=== PATIENT | male | born 1990 | race Two or more races ===

== ENCOUNTER 2021-07-20 22:29 | Emergency (ER) | payer BC | END 2021-07-20 23:39 | disposition home or self-care (01) | LOC: JD.ED 22:29 | DX: L03.012 Cellulitis of left finger (principal); E66.9 Obesity, unspecified; Z91.018 Allergy to other foods; Z68.41 Body mass index [BMI] 40.0-44.9, adult | CPT/HCPCS: 99283 ==

== ENCOUNTER 2022-07-28 19:41 | Emergency (ER) | payer BC ==
[2022-07-28 21:24] LABS: CORONAVIRUS COVID-19 NAA NEGATIVE (NEGATIVE)
== END 2022-07-28 21:38 | disposition home or self-care (01) ==
LOC: JD.ED 19:41
DX: B34.9 Viral infection, unspecified (principal); J45.909 Unspecified asthma, uncomplicated; E66.9 Obesity, unspecified; Z68.41 Body mass index [BMI] 40.0-44.9, adult; Z86.16 Personal history of COVID-19; Z91.013 Allergy to seafood; Z20.822 Contact with and (suspected) exposure to COVID-19
CPT/HCPCS: 0240U; 71046; 99284

== ENCOUNTER 2024-06-04 19:51 | Emergency (ER) | payer BC ==
[2024-06-04] MEDS: Sodium Chloride 0.9% 10 ML Syringe FLUSH PRN (20:39)
[2024-06-04] MEDS: Ketorolac 30 MG/ML SDV IVPUSH ONE (20:39)
[2024-06-04] MEDS: Sodium Chloride 0.9% 2,000 ML IV ONE (20:39)
[2024-06-04] MEDS: Acetaminophen 325 MG Tab PO ONE (20:40)
[2024-06-04 20:51] LABS: BASOPHILS PERCENT AUTO 0.2 % (0.0-1.0); EOSINOPHILS PERCENT AUTO 0.6 % (0.0-6.0); HEMATOCRIT 41.2 % (42.0-52.0); HEMOGLOBIN 13.6 gm/dl (14.0-18.0); IMMATURE GRAN ABSOLUTE AUTO 0.03 K/mm3 (0.00-0.05); IMMATURE GRAN PERCENT AUTO 0.5 % (0.0-0.4); LYMPHOCYTES ABSOLUTE AUTO 0.5 K/mm3 (1.0-4.8); LYMPHOCYTES PERCENT AUTO 6.9 % (24.0-44.0); MEAN CORPUSCULAR HEMOGLOBIN 27.5 pg (28.0-32.0); MEAN CORPUSCULAR VOLUME 83.2 fl (83.0-99.0); MEAN PLATELET VOLUME 9.6 fl (9.4-12.4); MONOCYTES ABSOLUTE AUTO 1.2 K/mm3 (0.0-0.8); MONOCYTES PERCENT AUTO 17.5 % (0.0-8.0); NEUTROPHILS ABSOLUTE AUTO 4.9 K/mm3 (1.8-7.7); NEUTROPHILS PERCENT AUTO 74.3 % (41.0-71.0); PLATELET COUNT,PLT 245 K/mm3 (150-400); RED BLOOD CELL COUNT 4.95 M/mm3 (4.52-5.90); WHITE BLOOD CELL COUNT,WBC 6.63 K/mm3 (3.9-11.3)
[2024-06-04 21:43] LABS: LACTIC ACID 1.1 mmol/L (0.4-2.0)
[2024-06-04 21:49] LABS: A/G RATIO 1.1 (1-2); ALBUMIN 3.7 g/dl (3.4-5.0); ANION GAP 11.1 (5-15); BILIRUBIN TOTAL 0.3 mg/dL (0.2-1.0); BUN/CREATININE RATIO 11.8 (14-18); CALCIUM 8.7 mg/dL (8.5-10.1); CREATININE 1.1 mg/dL (0.7-1.3); EST CRCL DRUG DOSING (CG) 87.81 mL/min; POTASSIUM,K 4.1 mEq/L (3.5-5.1); PROTEIN TOTAL,TP 7.2 g/dl (6.4-8.2)
[2024-06-04] MEDS: Oseltamivir 75 MG Cap PO SCH (23:41)
== END 2024-06-04 23:49 | disposition home or self-care (01) ==
LOC: JD.ED 19:51
DX: J10.1 Influenza due to other identified influenza virus with other respiratory manifestations (principal); E66.9 Obesity, unspecified; Z86.16 Personal history of COVID-19; Z91.013 Allergy to seafood; Z68.41 Body mass index [BMI] 40.0-44.9, adult
CPT/HCPCS: 36415; 71045; 80053; 83605; 85025; 87040; 87428; 87651; 96361; 96374; 99283; A9270; J1885; J7030